=== PATIENT | female | born 1940 | race Caucasian/White ===

== ENCOUNTER 2018-05-24 18:55 | Emergency (ER) | payer MEDICARE ==
--- NOTE | 2018-05-24 19:31 | ED ---
Extremity Problem HPI - General Chief complaint: Extremity Problem,Nontraumatic Stated complaint: rt leg pain Time Seen by Provider: 05/24/18 19:22 Source: patient, RN notes reviewed Mode of arrival: wheelchair Limitations: no limitations - History of Present Illness Initial comments: This is a 78-year-old female presents emergency Department chief complaint right leg pain. She states has been bothersome over the last 2 days to week. She noticed some redness and swelling to her leg and saw her primary care physician who started on Augmentin for cellulitis of her leg. She does admit that she normally has swelling of both legs the right leg is usually worse secondary to a prior injury. Patient's had no prior DVT she denies any current chest pain or shortness breath. Patient family states that the redness has improved on antibiotics that she complained of more pain today and she states that it's in her thigh and calf region. She does take even the pain radiates up to her hip denies any back pain denies any bowel bladder incontinence or retention. Patient reports no fever, chills, night sweats patient did receive and [place] just prior arrival. - Related Data Allergies Allergy/AdvReac Type Severity Reaction Status Date / Time No Known Allergies Allergy Verified 05/24/18 19:26 Review of Systems ROS Statement: Those systems with pertinent positive or pertinent negative responses have been documented in the HPI. ROS Other: All systems not noted in ROS Statement are negative. Past Medical History Past Medical History: Asthma, Dementia, Diabetes Mellitus, Hyperlipidemia, Hypertension Additional Past Medical History / Comment(s): chronic back pain History of Any Multi-Drug Resistant Organisms: None Reported Past Surgical History: Cholecystectomy Past Psychological History: No Psychological Hx Reported Smoking Status: Never smoker Past Alcohol Use History: None Reported Past Drug Use History: None Reported General Exam Limitations: no limitations General appearance: alert, in no apparent distress Head exam: Present: atraumatic, normocephalic, normal inspection Respiratory exam: Present: normal lung sounds bilaterally. Absent: respiratory distress, wheezes, rales, rhonchi, stridor Cardiovascular Exam: Present: regular rate, normal rhythm, normal heart sounds. Absent: systolic murmur, diastolic murmur, rubs, gallop, clicks Extremities exam: Present: other (Right lower extremity there is 1+ pitting edema there is mild erythema with no warmth to right lower extremity pedal pulses equal bilaterally there is mild popliteal tenderness and distal thigh tenderness) Course Vital Signs 05/24/18 19:22 Temperature 97.4 F L Pulse Rate 88 Respiratory 18 Rate Blood Pressure 131/60 O2 Sat by Pulse 98 Oximetry Medical Decision Making - Medical Decision Making 78-year-old female presented for right leg pain. Patient is currently on antibiotics for cellulitis which is improving. Patient does have some pain in her posterior thigh which appears to be a hematoma or possible cyst. Patient states she's had a Harkins's cyst in the past. She will follow-up with her doctor on Saturday and return for any worsening symptoms. Disposition Clinical Impression: Cellulitis of right leg, Right leg pain Disposition: HOME SELF-CARE Condition: Stable Instructions: Hematoma (ED) Additional Instructions: Continue antibiotics as directed. Please return to the Emergency Department if symptoms worsen or any other concerns. Is patient prescribed a controlled substance at d/c from ED?: No Referrals: Shannan Jack DO [Primary Care Provider] - 1-2 days Time of Disposition: 21:10
--- NOTE | 2018-05-24 20:52 | US ---
EXAMINATION TYPE: US venous doppler duplex LE RT DATE OF EXAM: 05/24/2018 8:40 PM COMPARISON: Prior right lower extremity venous ultrasound November 28, 2015 CLINICAL HISTORY: Pain. SIDE PERFORMED: Right TECHNIQUE: The lower extremity deep venous system is examined utilizing real time linear array sonog norma with graded compression, doppler sonography and color-flow sonography. VESSELS IMAGED: External Iliac Vein (EIV) Common Femoral Vein Deep Femoral Vein Greater Saphenous Vein * Femoral Vein Popliteal Vein Small Saphenous Vein * Proximal Calf Veins (* superficial vessels) Right Leg: Negative for DVT Incidental complex fluid collection superior to knee lateral side to about mid knee measuring approxi mately 4.2 x 1.9 x 4.3 cm in area of pain. Grayscale, color doppler, spectral doppler imaging performed of the deep veins of the right lower ext remity. There is normal flow, compressibility, vascular waveforms. IMPRESSION: No ultrasound evidence for acute DVT in the right lower extremity. At the end of the exa m there is 4.2 cm thin-walled fluid collection at area of pain. Differential includes hematoma there has been recent trauma. Other etiologies are not excluded.
[2018-05-24 21:19] VITALS: BP 136/77; PULSE 82; RESP 16; TEMP 97.9
== END 2018-05-24 21:15 | disposition home or self-care (01) ==
LOC: EC 18:55
DX: L03.115 Cellulitis of right lower limb (principal); M79.604 Pain in right leg
CPT/HCPCS: 99283